=== PATIENT | male | born 1965 | race Caucasian/White ===

== ENCOUNTER 2022-04-28 16:06 | Emergency (ER) | payer OTHER, SELFPAY ==
[2022-04-28 16:16] VITALS: BP 126/87; PULSE 69; RESP 16; TEMP 36.3; O2SAT 98
--- NOTE | 2022-04-28 16:50 | ED.EAR ---
HPI - Ear Problem General Chief complaint: Ear Stated complaint: Left Eye/Ear Pain Time Seen by Provider: 04/28/22 16:50 Source: patient, RN notes reviewed and old records reviewed Mode of arrival: ambulatory Limitations: no limitations History of Present Illness HPI Narrative: 57-year-old male presents to the [facility] with left eye and ear pain since Thursday. Denies any blurry vision or change in vision. Concern for an ear infection. Denies any drainage or crusting of the eye. Related Data Home Medications Medication Instructions Recorded Confirmed indapamide 2.5 mg tablet 1 mg PO DAILY 04/28/22 04/28/22 losartan 100 mg tablet 100 mg PO DAILY 04/28/22 04/28/22 Allergies Allergy/AdvReac Type Severity Reaction Status Date / Time No Known Allergies Allergy Verified 04/28/22 16:22 Review of Systems Review of Systems: All systems reviewed & are unremarkable except as noted in HPI and below Constitutional: Constitutional: Reports no additional constitutional complaints Eyes: Eyes: Reports as per HPI ENT: Reports as per HPI Cardiovascular: Cardiovascular: Reports no additional cardiovascular complaints, Denies chest pain and Denies dyspnea Respiratory: Respiratory: Reports no additional respiratory complaints, Denies chest congestion, Denies cough and Denies dyspnea Gastrointestinal: Gastrointestinal: Reports no additional gastrointestinal complaints, Denies abdominal pain, Denies nausea and Denies vomiting Musculoskeletal: Musculoskeletal: Reports no additional musculoskeletal complaints Integumentary/Breasts: Skin/Breast: Reports system reviewed and no additional complaints, except as docu Neurologic: Reports system reviewed and no additional complaints, except as documented Psychiatric: Psychiatric: Reports no additional psychiatric complaints Allergic/Immunologic: Allergic/Immunologic: Reports no additional allergic/immunologic complaints [facility] Past Medical History Medical History (Updated 04/28/22 @ 20:31 by Amirah Covington APRN) History of high blood pressure Comments At the time of my signature, I reviewed and agree with the nursing past medical, surgical, social, and family history. There is no relevant family history pertinent to the patient complaint. Exam Const: General: cooperative, healthy appearing, comfortable, no acute distress, well developed, alert and well nourished Nutritional Appearance: well nourished Orientation/consciousness: patient oriented x3 Limitations: no limitations HENMT: Head: normal to inspection Ears: hearing grossly normal bilaterally, external ears normal, EAC's normal and TM abnormal bulging on the left and wth effusion serous on the left; not erythematous Face/Nose/Sinus: Normal external nose present, Normal nares present, Normal nasal mucous membranes and turbinates present and normal facial exam Face and sinus: normal facial exam Mouth: Yes Normal oral and palatal mucosa present, Yes lip normal and Yes moist mucous membranes Throat: posterior oropharynx normal and uvula midline Eyes: General: appearance normal, both eyes and all related structures Alignment and Position: alignment normal Periorbital: periorbital findings normal Conjunctivae: conjunctival abnormality left conjunctival injection localized (Lower lid increased erythema); without discharge Pupils: Equal, round and reactive pupils present EOM: EOMs intact bilaterally Neck: Neck: normal visual inspection, full ROM, no lymphadenopathy and no meningeal signs Chest: Chest palpation & inspection: normal inspection of the chest Resp: Effort & Inspection: normal respiratory effort and able to speak in complete sentences Auscultation: clear to auscultation bilaterally, no crackles, no rales, no rhonchi and no wheezes Cardio: Rate: regular rate Rhythm: regular rhythm Back/Spine/Pelvis: Cervical Spine: cervical ROM normal Thoracic/Lumbar Spine: No thoracic spinal tenderness Skin: General skin e
== END 2022-04-28 17:13 | disposition home or self-care (01) ==
PROVIDERS: Emergency Provider Nurse Practitioner; PCP Family Medicine
DX: H10.32 Unspecified acute conjunctivitis, left eye (principal); H65.02 Acute serous otitis media, left ear; I10 Essential (primary) hypertension
CPT/HCPCS: 99213; G0463

== ENCOUNTER 2022-11-28 13:20 | Outpatient (CLI) | payer OTHER, SELFPAY ==
--- NOTE | ~2022-11-28 | XR_ITS ---
XR abdomen/kub 1V 11/28/2022 14:22 INDICATION: Gross hematuria TECHNIQUE: KUB COMPARISON: None FINDINGS: Bowel gas pattern is normal. There is no evidence of free air, mass, organomegaly, ascites or obstruction. No abnormal calculi are seen. The bones appear intact. IMPRESSION: 1: No acute abdominal abnormality identified. Reviewed, dictated and finalized at location B.
--- NOTE | ~2022-11-28 | CT_ITS ---
EXAMINATION: CT abdomen pelvis wo/w con DATE: 11/28/2022 14:37 INDICATION: Gross hematuria TECHNIQUE: Computed tomography (CT) of the abdomen and pelvis was performed without intravenous contr ast. CT of the abdomen and pelvis was then performed with a total of 130 mL Omnipaque 350 intravenous contrast using a double-bolus technique for simultaneous opacification of the renal parenchyma and r enal collecting system. The dose-length product (DLP) was 1138.85 mGy-cm. Automated exposure control and iterative reconstruction technique were employed. COMPARISON: None FINDINGS: The lung bases are clear. The heart size is normal. The liver, spleen, pancreas, gallbladde r, and adrenal glands are normal. Cysts of the kidneys measure up to 1.6 cm on the left. There is a d uplicated right collecting system. The ureters join in the midabdomen there are at least four irregul ar masses of the bladder wall. The largest of which measures 2.3 x 2.2 cm posteriorly to the right of midline. No pathologically enlarged abdominal or pelvic lymph nodes are identified. Colonic divertic ulosis is present without evidence of diverticulitis. No free intraperitoneal gas or evidence of louisa l obstruction. There is a tiny fat-containing umbilical hernia. Mild lumbar spondylosis is noted. IMPRESSION: 1. Multiple bladder masses concerning for urothelial carcinoma. Direct visualization is recommended. Reviewed, dictated and finalized at location F. IMPRESSION: 1. Multiple bladder masses concerning for urothelial carcinoma. Direct visualiz ation is recommended.
[2022-11-28 14:21] LABS: Estimated Glomerular Filt Rate > 60
== END 2022-11-28 13:21 | disposition home or self-care (01) ==
PROVIDERS: PCP Family Medicine; Visit Provider Nurse Practitioner Family
DX: R31.0 Gross hematuria (principal); N32.89 Other specified disorders of bladder
CPT/HCPCS: 74018; 74178; Q9967

== ENCOUNTER 2024-07-05 11:23 | Emergency (ER) | payer OTHER, SELFPAY ==
[2024-07-05] VITALS (17 sets, daily range): BP systolic 137–180; BP diastolic 61–86; PULSE 53–71; RESP 11–21; TEMP 36.3; O2SAT 88–100
--- NOTE | ~2024-07-05 | CT_ITS ---
EXAMINATION: CT brain wo con DATE: 07/05/2024 12:31 INDICATION: Left facial palsy TECHNIQUE: Computed tomography (CT) of the head was performed without intravenous contrast. Sagittal and coronal reconstructions were performed. The mA was adjusted according to patient size. Iterative reconstruction technique was employed. The dose-length product was 605.33 mGy-cm. COMPARISON: None FINDINGS: No acute intracranial hemorrhage, acute infarction or abnormal extra axial fluid collection. Ventricl es are normal and symmetric. No mass/mass effect. Small mucous retention cyst in the right sphenoid s inus. The orbits and mastoid air cells are normal. IMPRESSION: 1. Normal brain. No acute intracranial process. Reviewed, dictated and finalized at location A.
--- NOTE | 2024-07-05 11:30 | ECG_ITS ---
Test Date: 2024-07-05 11:41:05 Measurements Intervals [place] Rate: 60 P: 39 [place]: 167 QRS: 24 QRSD: 99 T: 34 QT: 413 QTc: 414 Interpretive Statements SINUS RHYTHM NORMAL ECG No previous ECG available for comparison Electronically Signed On 07-05-2024 12:24:45 CDT by Jorge Ricardo D.O.
[2024-07-05 11:42] LABS: Basophils Percent Auto 0.6 % (0.2-1.2); Eosinophils Absolute Auto 0.1 K/mm3 (0-0.3); Eosinophils Percent Auto 0.9 % (0-4.4); Hemoglobin 14.9 g/dL (14.0-18.0); Immature Granulocyte Absolute 0.03 K/mm3 (0.00-0.031); Immature Granulocyte Percent A 0.6 % (0-0.5); Lymphocytes Absolute Auto 1.87 K/mm3 (0.9-3.2); Lymphocytes Percent Auto 34.7 % (18.3-44.2); Mean Corpuscular HGB Conc 33.9 g/dl (32-36); Mean Corpuscular Hemoglobin 29.8 pg (26-34); Mean Platelet Volume 9.5 fl (7.4-10.4); Monocytes Absolute Auto 0.5 K/mm3 (0.1-0.6); Monocytes Percent Auto 9.5 % (2.6-8.5); Neutrophils Absolute Auto 2.9 K/mm3 (1.3-6.7); Neutrophils Percent Auto 53.7 % (45.5-73.1); Platelet Count Result 210 k/mm3 (150-375); Red Cell Distribution Width 12.8 % (11.5-14.5); White Blood Count 5.4 K/mm3 (4.5-10.0)
[2024-07-05 12:00] LABS: Alanine Aminotransferase 46 U/L (6-50); Albumin Level 4.8 g/dL (3.5-5.1); Alkaline Phosphatase 63 U/L (38-126); Anion Gap 9 mmol/L (4-12); Aspartate Amino Transferase 28 U/L (17-59); Bilirubin,Total 0.5 mg/dL (0.2-1.3); Blood Urea Nitrogen 14 mg/dL (9-20); Carbon Dioxide 29 mmol/L (22-30); Chloride 101 mmol/L (98-107); Estimated Glomerular Filt Rate > 60; Glucose 97 mg/dL (65-110); Potassium 3.8 mmol/L (3.4-5.0); Sodium 139 mmol/L (137-145)
[2024-07-05 12:01] LABS: INR 0.9
[2024-07-05 12:02] LABS: Partial Thromboplastin Time 25.4 Seconds (22.3-36.8)
[2024-07-05 12:11] LABS: Troponin I < 0.012 ng/mL (0.000-0.034)
--- NOTE | 2024-07-05 12:24 | ED.NEUROSD ---
HPI - Neuro Symptoms/Deficit General Chief Complaint: Neuro Symptoms/Deficit Stated Complaint: left sided facial numbness since last night Time Seen by Provider: 07/05/24 11:29 History of Present Illness HPI Narrative: 59-year-old male with a past medical history including prostate cancer currently in remission and hypertension. He presents the emergency depart with 1 week of left-sided facial palsy. Patient states that he occasionally gets some stinging pain in his left neck whenever he turns to the right side. Notices that he was not able to spit water straight out and he had some facial droop on the left side more so on the left lower jaw but also affecting his forehead. Remote history of herpes zoster as well. No rash or lesions. No recent infection symptoms. No headache or vision changes. No nausea, vomiting, chest pain, shortness a breath abdominal pain, back pain. He was otherwise in his normal state of health. No history of strokes, no history of CVA in the family. Related Data Allergies Allergy/AdvReac Type Severity Reaction Status Date / Time No Known Allergies Allergy Verified 10/28/22 17:59 Review of Systems Review of Systems: As reviewed above in HPI [facility] Past Medical History Medical History Major depressive disorder Hypertension Surgical History Surgical History History of surgery on lower extremity ORIF left tibial fracture 1987 pin removal left tibial 1988 Family History Family History Father No problems noted. Mother No problems noted. Social History Social History Smoking status: Never smoker Second hand tobacco smoke exposure: No Alcohol intake: current Drinks per week: 5 Substance use: never Substance use type: does not use Lack of Transportation: No Lack of Food: Never True Current Housing: I Have Housing Concerned About Future Housing: No Difficulty Paying Gas/Electric Bills: No Difficulty Paying for Meds: No Currently Unemployed: No Education: Trade/Vocational Certificate Difficulty w/ Childcare or Family Care: No Living arrangements: alone Occupation/Education: occupation Gender identity (if verbalized by the patient): Male Sexual Orientation (if Verbalized by the Patient): Straight or Heterosexual Spiritual care concerns: No Exam Narrative: GENERAL: [Well-appearing, well-nourished, and in no acute distress.] HEAD: [Normocephalic, atraumatic.] EYES: [PERRLA and EOMI.] ENT: Nares clear, no rhinorrhea or epistaxis. Mucous membranes moist. NECK: Supple. CHEST: [Clear to auscultation. No respiratory distress.] HEART: [Regular rate and rhythm]. No murmur heard. [Normal peripheral pulses.] ABDOMEN: [Soft, nondistended], [nontender], [No rigidity or guarding] EXTREMITIES: Normal range of motion. [No edema.] SKIN: Warm, dry, no rash. NEURO: Left-sided facial palsy involving the lower jaw and upper forehead, tongue protruding midline subjective decrease in sensation over the V1, V2 and V3 distribution left side compared to the right. Bilateral upper extremities without drift, bilateral lower extremities without drift. No visual deficits, no strength deficits. Sensation intact with both arms and legs. PSYCH: [Normal mood and affect.] Course Vital Signs Vital signs: Vital Signs Pulse Rate 71 07/05/24 11:29 Respiratory Rate 17 07/05/24 11:29 Blood Pressure 174/83 H 07/05/24 11:29 Pulse Oximetry 98 07/05/24 11:29 Temperature 36.3 C L 07/05/24 11:38 Pulse Rate 65 07/05/24 11:43 Respiratory Rate 16 07/05/24 11:38 Blood Pressure 180/65 H 07/05/24 11:38 Pulse Oximetry 97 07/05/24 11:38 Oxygen Delivery Room Air 07/05/24 11:38 MDM - Neuro Symptoms/Deficit MDM Narrative Medical decision making narrative: 59-year-old male with a past medical history including hypertension and for prostate cancer in remission. Patient presents today with left-sided facial palsy x1 week. Involves lower jaw and upper forehead more consistent with a Whittington's palsy type picture. He is hypertensive in the 180s in triage. Does have risk factors for CVA given his recent cancer now in remission and hypertension, although he has no her personal history of strokes or any strong family history of strokes. There are no other focal deficits in his neuro exam. Differential diagnosis strongly points towards Whittington's palsy and viral disease rather than thromboembolic event such as a ischemic stroke and less likely hemorrhagic. Given duration of symptoms and his risk factors we will obtain imaging studies and laboratory assessment. CBC, CMP, troponin, EKG, CT of the head was obtained. I discussed with the patient his clinical diagnosis at this time and plan of care if his workup is negative was to discharge him home with treatment for Whittington's palsy and have him follow-up with his primary care provider. Workup shows no leukocytosis or anemia. Normal platelet count. Coags within normal limits, normal renal function, normal electrolytes, normal hepatic function. Negative troponin. CT of the head shows no acute intracranial process. Patient has a clinical diagnosis of Whittington's palsy can be safely discharged home at this time a combination of steroids and antiviral therapy. Patient was comfortable this plan and given strict return precautions and PCP follow-up instructions. Medical Records Attestation: I reviewed the patient's medical records. Lab Data Attestation: I reviewed the patient's lab results. 07/05/24 11:36 07/05/24 11:36 Labs: Lab Results 07/05/24 Range/Units 11:36 WBC 5.4 (4.5-10.0) K/mm3 RBC 5.00 (4.6-6.20) M/mm3 Hgb 14.9 (14.0-18.0) g/dL Hct 44.0 (42.0-52.0) % MCV 88.0 (80-100) fl MCH 29.8 (26-34) pg MCHC 33.9 (32-36) g/dl RDW 12.8 (11.5-14.5) % Plt Count 210 (150-375) k/mm3 MPV 9.5 (7.4-10.4) fl Immature Gran % (Auto) 0.6 H (0-0.5) % Neut % (Auto) 53.7 (45.5-73.1) % Lymph % (Auto) 34.7 (18.3-44.2) % Hutchinson % (Auto) 9.5 H (2.6-8.5) % Eos % (Auto) 0.9 (0-4.4) % Baso % (Auto) 0.6 (0.2-1.2) % Lymph # (Auto) 1.87 (0.9-3.2) K/mm3 Hutchinson # (Auto) 0.5 (0.1-0.6) K/mm3 Eos # (Auto) 0.1 (0-0.3) K/mm3 Baso # (Auto) 0.0 (0.0-0.1) K/mm3 Abs Immat Gran (auto) 0.03 (0.00-0.031) K/mm3 Absolute Neuts (auto) 2.9 (1.3-6.7) K/mm3 Absolute Nucleated RBC 0.000 (0.0-0.012) K/mm3 Nucleated RBC % 0.0 (0.0-0.2) % PT 13.0 (11.1-14.7) Seconds INR 0.9 APTT 25.4 (22.3-36.8) Seconds Sodium 139 (137-145) mmol/L Potassium 3.8 (3.4-5.0) mmol/L Chloride 101 (98-107) mmol/L Carbon Dioxide 29 (22-30) mmol/L Anion Gap 9 (4-12) mmol/L BUN 14 (9-20) mg/dL Creatinine 0.84 (0.7-1.3) mg/dL Estim Creat Clear Calc Not Reportable Estimated GFR > 60 (59 - ) Glucose 97 (65-110) mg/dL Calcium 10.0 (8.4-10.2) mg/dL Total Bilirubin 0.5 (0.2-1.3) mg/dL AST 28 (17-59) U/L ALT 46 (6-50) U/L Alkaline Phosphatase 63 (38-126) U/L Troponin I < 0.012 (0.000-0.034) ng/mL Total Protein 8.0 (6.3-8.2) g/dL Albumin 4.8 (3.5-5.1) g/dL Imaging Data Attestation: I personally reviewed and interpreted this imaging study as follows: My impression: Impressions Head CT 07/05/24 12:40 IMPRESSION: 1. Normal brain. No acute intracranial process. Discharge Plan Discharge Clinical Impression: Facial paralysis/Knox palsy Patient Disposition: Home Condition: Stable Instructions: Antibiotic Form, Whittington Palsy (ED) Additional Instructions: Your laboratory studies and CT scan are all reassuring with no remarkable findings. No signs of a stroke. Your symptoms are consistent with Whittington's palsy. Symptoms can last several weeks but you will be treated with steroids and antiviral therapy for the next week. We will also give you eyedrops and a eye shield. If you start developing any eye symptoms such as vision loss or any developing neurological complaints such as weakness or numbness in the extremities please return to the emergency department. Otherwise follow up with your PCP on a short term basis. Patient Language: Arabic Prescriptions: New prednisone 20 mg tablet 60 mg PO DAILY 7 Days Qty: 21 0RF valacyclovir 1 gram tablet 1,000 mg PO Q8H 7 Days Qty: 21 0RF artificial tears(hypromellose) 0.3 % drops 1 drp LEFT EYE QID PRN (Reason: dry eyes) Qty: 30 0RF No Action indapamide 2.5 mg tablet 2.5 mg PO DAILY Qty: 90 1RF losartan 100 mg tablet 100 mg PO DAILY Qty: 90 1RF Follow-up/Referrals: Sam Montelongo MD [Primary Care Provider] - 1 Week (bells palsy follow up) Time of Disposition: 13:56
--- OUTSIDE RECORDS SUMMARY | 2024-07-05 13:15 | XMS_ITS | Clinical Summary ---
Author Organization [facility] Address [facility] [place] [address] Care Team Providers Care Sap Bw Architect Name Role Phone Sam Montelongo MD Primary Care Provider [phone] Allergies No known active allergies Medications losartan (COZAAR) 100 MG tablet Take 1 tablet (100 mg total) by mouth daily. Unsure of dose Active Multiple Vitamin (MULTIVITAMIN ADULT OR) Take by mouth daily. Active ibuprofen (MOTRIN) 600 MG tablet Take 1 tablet (600 mg total) by mouth every 6 (six) hours as needed for Pain. Active Family History Medical History Relation Comments Cancer Brother lung Diabetes Father Relation Status Comments Brother Father Social History Tobacco Use Types Packs/Day Years Used Date Smoking Tobacco: Never Smokeless Tobacco: Former Chew Quit: 1999 Tobacco Cessation:Counseling Given: Not Answered Alcohol Use Standard Drinks/Week Comments Yes 16.7 (1 standard drink = 0.6 oz pure alcohol) Sex and Gender Information Value Date Recorded Sex Assigned at Not on file Legal Sex Male 10:41 AM CDT Gender Identity Not on file Sexual Orientation Not on file Last Filed Vital Signs Vital Sign Reading Time Taken Comments Blood Pressure 142/90 01/02/2023 3:30 PM CDT Pulse 61 01/02/2023 3:30 PM CDT Temperature 36.3 C (97.4 F) 01/02/2023 3:30 PM CDT Respiratory Rate 16 01/02/2023 3:30 PM CDT Oxygen Saturation 96% 01/02/2023 3:30 PM CDT Inhaled Oxygen Concentration - - Weight 105.2 kg (232 lb) 12/30/2022 11:22 AM CDT Height 185.4 cm (6' 1 ) 12/30/2022 11:22 AM CDT Body Mass Index 30.61 12/30/2022 11:22 AM CDT Plan of Treatment Health Maintenance Due Date Last Done Comments Colorectal Cancer Screening Colonoscopy (10 Years) 1967 Annual Physical 1970 Hepatitis C 1985 DTaP, Tdap and Td Vaccines ( 1 - Tdap) 1986 Hepatitis B Vaccines (1 of 3 - 19+ 3-dose series) 1986 Pneumococcal Vaccine: 50+ Years (1 of 1 - PCV) 2017 Zoster Vaccines (1 of 2) 2017 COVID-19 Vaccine (4 - 2023-2 5 season) 2023 02/14/2021, 05/26/2020, 04/28/2020 Meningococcal B Vaccine Aged Out No l onger eligible based on patient's age to complete this topic Meningococcal Vaccine Aged Out No dion mana eligible based on patient's age to complete this topic RSV Immunizations Under 20 Months Aged Out No longer eligible b ased on patient's age to complete this topic Insurance [employer] Care Teams Sap Bw Architect Relationship Specialty Start Date End Date Sam Montelongo MD [address] [place] [id number] PCP - General FAMILY PRACTICE 12/30/22
--- OUTSIDE RECORDS SUMMARY | 2024-07-05 13:59 | XMS_ITS | Clinical Summary ---
Author Organization [facility] Address [facility] [place] [address] Care Team Providers Care Vascular Neurologist Name Role Phone Sam Montelongo MD Primary Care Provider [phone] Allergies No known active allergies Medications losartan [...] complete this topic Insurance [employer] Care Teams Vascular Neurologist Relationship Specialty Start Date End Date Sam Montelongo MD [address] [place] [id number] PCP - General FAMILY PRACTICE 12/30/22
== END 2024-07-05 14:22 | disposition home or self-care (01) ==
PROVIDERS: Emergency Medicine; Emergency Provider Student in an Organized Health Care Education/Training Program; PCP Family Medicine
DX: G51.0 Bell's palsy (principal); F32.A Depression, unspecified; I10 Essential (primary) hypertension
CPT/HCPCS: 36415; 70450; 80053; 84484; 85025; 85610; 85730; 93005; 99284